=== PATIENT | female | born 1945 | race Caucasian/White ===

== ENCOUNTER 2020-12-23 12:14 | Emergency (ER) | payer MEDICARE ==
[~2020-12-23] VITALS: Ht 167.6 cm; Wt 77.0 kg
[2020-12-23] MEDS ORDERED: NEOMY/BACITR/POLYMYXIN OINT PACKET. TP ONE (13:00)
--- NOTE | 2020-12-23 13:11 | RAD ---
EXAM: Head and maxillofacial bone CT without contrast. HISTORY: Facial swelling. Fall. TECHNIQUE: Computed tomographic images of the head and maxillofacial bones were obtained without cont rast. *One or more of the following individualized dose reduction techniques were utilized for this examina tion: 1. Automated exposure control. 2. Adjustment of the mA and/or kV according to patient size. 3. Use of iterative reconstruction technique. COMPARISON: None. FINDINGS: There is no acute or subacute extra-axial or intraparenchymal hemorrhage. There is no mass effect or midline shift. There is no hydrocephalus. There are areas of decreased attenuation within the cerebral white matter, nonspecific and likely rel ated to chronic small vessel disease. There is cerebral volume loss. There is evidence of bilateral lens surgery. The mastoid air cells are clear. The temporomandibular joints are intact. There is a small right maxillary sinus mucous retent ion cyst. There is mild superior left maxillary sinus mucosal thickening. There is attenuation of the ostiomeatal units. There is minimal rightward nasal septal deviation. The re is soft tissue swelling along the left anterior maxilla likely due to a contusion or small hematom a. IMPRESSION: 1. No acute intracranial finding or evidence of acute maxillofacial bone trauma. There is a suspected soft tissue contusion or small hematoma along the left anterior maxillary soft tissues. 2. Bilateral cerebral white matter changes, likely due to chronic small vessel disease. Electronically signed by: Kajal Samayoa MD (12/23/2020 1:08 PM) [id number]
[2020-12-23 13:19] VITALS: BP 157/83
--- NOTE | 2020-12-23 13:22 | PHYS DOC ---
Past History Past Medical History: High Cholesterol, Hypotension Additional Past Medical Histor: HIGH PLATELETS Past Surgical History: Appendectomy, Other Additional Past Surgical Histo: OOPHORECTOMY Smoking: Non-smoker Alcohol Use: None Drug Use: None General Adult EDM: Chief Complaint: MECHANICAL FALL HPI: HPI: 75-year-old female presents with report of mechanical fall approximately 30 min utes prior to arrival. Patient reports she was carrying some lemon from a downstairs and thought she was on the landing but still had 1 step to go. Patient reports upon missing the step she ended up falling forward striking her face on the "cement floor ". Patient denies any loss of consciousness. Denies nausea or vomiting. Denies epistaxis. Reports bruising underneath left eye to cheek and to left upper lip. Denies any dental pain. Patient denies use of blood thinners. Patient also reports some swelling and bruising to right lateral wrist. Patient also reports some abrasions to bilateral knees. Patient reports she is able to ambulate without difficulty. Reports is able to move her right wrist without difficulty. Review of Systems: Review of Systems: Constitutional: Denies fever or chills Eyes: Denies redness or eye pain HENT: Denies nasal congestion or epistaxis Respiratory: Denies cough or shortness of breath Cardiovascular: Denies chest pain or palpitations GI: Denies abdominal pain, nausea, or vomiting : Denies dysuria or hematuria Musculoskeletal: Denies neck pain; reports right wrist pain and swelling Integument: Reports swelling and bruising to left cheek and left upper lip with abrasions to face, right lateral hand, and bilateral knees Neurologic: Denies headache, focal weakness or sensory changes Complete systems were reviewed and found to be within normal limits, except as documented in this note. Current Medications: Current Meds: Current Medications Medications (Trade) Dose Ordered Sig/Gregorio Start Time Stop Time Status Last Admin Dose Admin Neomycin/ Polymyxin/ Bacitracin (Triple Antibiotic Ointment) 1 pkt 1X ONCE 12/23/20 13:00 12/23/20 13:01 DC 12/23/20 12:56 1 PKT Allergies: Allergies: Allergies Coded Allergies Type Severity Reaction Last Updated Verified No Known Drug Allergies 12/23/20 No Physical Exam: PE: Constitutional: Well developed, well nourished, no acute distress, non-toxic appearance HENT: Normocephalic, facial swelling and bruising to left cheek, nares without blood noted or septal hematoma, small 1 cm left upper lip intramucosal laceration, teeth appear intact without step-off Eyes: PERRL, EOMI, conjunctiva normal, no discharge Neck: Normal range of motion, no midline tenderness, supple Lungs & Thorax: No respiratory distress, equal chest rise and fall Abdomen: Soft, no tenderness; pelvis stable and nontender Skin: Warm, dry, no erythema, contusion and abrasion to left cheek, left upper lip contusion and abrasion, abrasion to right hypothenar eminence Back: No midline tenderness, no CVA tenderness Extremities: Right wrist without tenderness, ROM intact, mild hyperthenar swelling at right wrist, radial pulses +2 bilaterally Neurologic: Alert and oriented X 3, normal motor function, normal sensory function, no focal deficits noted Psychologic: Affect normal, judgment normal Current Patient Data: Vital Signs: Vital Signs Date Time Temp Pulse Resp B/P (MAP) Pulse Ox O2 Delivery O2 Flow Rate FiO2 12/23/20 12:22 97.8 56 18 180/92 (121) 98 Room Air EKG: EKG: [] Radiology/Procedures: Radiology/Procedures: PROCEDURE: CT HEAD AND MAXILLOFACIAL WO EXAM: Head and maxillofacial bone CT without contrast. HISTORY: Facial swelling. Fall. TECHNIQUE: Computed tomographic images of the head and maxillofacial bones were obtained without contrast. *One or more of the following individualized dose reduction techniques were utilized for this examination: 1. Automated exposure control. 2. Adjustment of the mA and/or kV according to patient size. 3. Use of iterative reconstruction technique. COMPARISON: None. FINDINGS: There is no acute or subacute extra-axial or intraparenchymal hemorrhage. There is no mass effect or midline shift. There is no hydrocephalus. There are areas of decreased attenuation within the cerebral white matter, nonspecific and likely related to chronic small vessel disease. There is cerebral volume loss. There is evidence of bilateral lens surgery. The mastoid air cells are clear. The temporomandibular joints are intact. There is a small right maxillary sinus mucous retention cyst. There is mild superior left maxillary sinus mucosal thickening. There is attenuation of the ostiomeatal units. There is minimal rightward nasal septal deviation. There is soft tissue swelling along the left anterior maxilla likely due to a contusion or small hematoma. IMPRESSION: 1. No acute intracranial finding or evidence of acute maxillofacial bone trauma. There is a suspected soft tissue contusion or small hematoma along the left anterior maxillary soft tissues. 2. Bilateral cerebral white matter changes, likely due to chronic small vessel disease. Electronically signed by: Kajal Samayoa MD (12/23/2020 1:08 PM) [id number] Heart Score: C/O Chest Pain: N/A Course & Med Decision Making: Course & Med Decision Making Pertinent Imaging studies reviewed. (See chart for details) Patient presents with facial contusion/abrasion, left upper lip contusion /abrasion, and intramucosal small laceration status post mechanical trip and fall. Patient denies use of blood thinners. Patient neurologically intact. No midline cervical spine tenderness noted. Patient does have some swelling to right wrist. No significant bony tenderness noted. Range of motion intact. Ice pack and Armando bandage provided to right wrist. Wounds cleaned and dressed. Patient reports her tetanus is up-to-date. CT head/maxillofacial noted to have soft tissue swelling without fracture. Patient stable for discharge with outpatient follow-up with PCP. Discussed findings and plan with patient and family, who acknowledge understanding and agreement. Jose Disclaimer: [facility] Disclaimer: This electronic medical record was generated, in whole or in part, using a voice recognition dictation system. Splinting Splinting : Location: Right wrist Pre-Made Type: ARMANDO bandage Pre-Proc Neuro Vasc Exam: normal Post-Proc Neuro Vasc Exam: normal, unchanged from pre-exam Departure Departure: Impression: Primary Impression: Fall Qualified Codes: W19.XXXA - Unspecified fall, initial encounter Additional Impressions: Facial contusion Qualified Codes: S00.83XA - Contusion of other part of head, initial encounter Abrasions of multiple sites Contusion of wrist, right Qualified Codes: S60.211A - Contusion of right wrist, initial encounter Laceration of lip Qualified Codes: S01.511A - Laceration without foreign body of lip, initial encounter Disposition: 01 HOME / SELF CARE / HOMELESS Condition: STABLE Referrals: NON,STAFF (PCP) Patient Instructions: Abrasion, [id number], Contusion, [id number], Elastic Bandage and RICE, Facial or Scalp Contusion, [id number], Fall Prevention and Home Safety, [id number], Mouth Laceration, [id number] Additional Instructions: Do not soak your wound. You may shower. Clean wound daily with soap and water. Change dressing 2 times daily. Use over the counter antibiotic ointment with each dressing change. Ice area of swelling or discomfort 20 minutes on then leave off next 20 minutes. Repeat several times daily for the next few days. Use [id number] ibuprofen and/or Tylenol for pain or discomfort. TABITHA ARROYO DO December 23, 2020 13:22
== END 2020-12-23 13:32 | disposition home or self-care (01) ==
LOC: ER 12:14
DX: S01.511A Laceration without foreign body of lip, initial encounter (principal); S00.83XA Contusion of other part of head, initial encounter; S60.211A Contusion of right wrist, initial encounter; S60.511A Abrasion of right hand, initial encounter; S80.212A Abrasion, left knee, initial encounter; S80.211A Abrasion, right knee, initial encounter; E78.00 Pure hypercholesterolemia, unspecified; W10.8XXA Fall (on) (from) other stairs and steps, initial encounter; Y93.89 Activity, other specified; Y92.89 Other specified places as the place of occurrence of the external cause; Y99.8 Other external cause status
CPT/HCPCS: 70450; 70486; 99284